=== PATIENT | female | born 1975 | race Caucasian/White ===

== ENCOUNTER → 2017-01-31 | Emergency (ER) | payer OTHER ==
[~2017-01-31] VITALS: Wt 70.0 kg
[~2017-01-31] MED LIST: ACET500C5 PO; ACETAMINOPHEN 325 MG TAB PO STA; MULT1TAB59; SOD CHLORIDE 0.9% 1,000 ML IV STA
[2017-01-31 16:47] LABS: ADD SCAN DIFF NO
[2017-01-31 16:58] LABS: ADD UMIC YES; URINE BILIRUBIN (Dip) NEGATIVE (NEGATIVE); URINE BLOOD (Dip) TRACE (NEGATIVE); URINE COLOR LT. YELLOW (YELLOW); URINE GLUCOSE (Dip) NEGATIVE (NEGATIVE); URINE KETONES (Dip) NEGATIVE (NEGATIVE); URINE LEUKOCYTE ESTERASE (Dip) NEGATIVE (NEGATIVE); URINE NITRITE (Dip) NEGATIVE (NEGATIVE); URINE TOTAL PROTEIN (Dip) NEGATIVE (NEGATIVE); URINE UROBILINOGEN (Dip) 0.2 E.U./dL (0.1-1.0)
[2017-01-31 16:59] LABS: BASOPHILS % 0.3 % (0.0-2.0); EOSINOPHILS % 0.3 % (0.0-7.0); LYMPHOCYTES # 1.3 10^3/ul (0.8-2.9); MEAN CORPUSCULAR HEMOGLOBIN 27.7 pg (29.0-33.0); MEAN CORPUSCULAR HGB CONC 32.4 g/dl (32.0-37.0); MEAN CORPUSCULAR VOLUME 85.5 fl (82.0-101.0); MEAN PLATELET VOLUME 11.5 fl (7.4-10.4); MONOCYTE # 0.6 10^3/ul (0.3-0.9); MONOCYTES % 8.4 % (0.0-11.0); NEUTROPHIL # 5.2 10^3/ul (1.6-7.5); NEUTROPHILS % 72.6 % (39.0-77.0); PLATELET COUNT 229 10^3/UL (140-415); RED BLOOD COUNT 4.33 10^6/ul (4.20-5.40); RED CELL DISTRIBUTION WIDTH 14.6 % (11.5-14.5); WHITE BLOOD COUNT 7.1 10^3/ul (4.8-10.8)
[2017-01-31 17:07] LABS: BACTERIA,URINE FEW; URINE RBCS 0-2 /HPF (0)
--- NOTE | 2017-01-31 17:11 | RADRPT ---
PROCEDURE: OB Ultrasound. CLINICAL INDICATION: Positive test. Pelvic pain. TECHNIQUE: Ultrasound of the pelvis was performed with transabdominal and transvaginal sonography in the axial and sagittal planes. COMPARISON: No prior study is available for comparison. FINDINGS: There is a single intrauterine gestational sac. pole is not visualized. Yolk sac is present. Mean sac diameter is 0.68 cm. There is a region of subchorionic hemorrhage measuring 4.2 x 0.5 x 2.2 cm. Menstrual age by ultrasound dates is 5 weeks 3 days. This indicates an expected date of delivery of 09/30/2017. The right ovary appears normal measuring 2.5 x 1.4 x 1.9 cm. The left ovary appears normal measuring 2.6 x 1.9 x 2.4 cm. Color Doppler and pulsed Doppler sonography demonstrate normal flow to the ovaries. There is no other pelvic mass or free fluid. IMPRESSION: 1. Single intrauterine gestational sac with yolk sac present. pole is not visualized. Follo w-up ultrasound in 11 days is advised. 2. Subchorionic hemorrhage. 3. Otherwise unremarkable study. RPTAT: QQ .Miguel Ernst MD, Date Time Electronically viewed and signed by .Miguel Ernst MD, on 01/31/2017 17:11 .R/
[2017-01-31 18:33] VITALS: BP 105/51; PULSE 82; RESP 18; TEMP 97.6
--- NOTE | 2017-01-31 18:34 | ERD ---
ER Documentation Chief Complaint Date/Time DATE: 01/31/17 TIME: 18:21 Chief Complaint 6 WKS PREG NO VAG BLEED. MILD CRAMP, HEADACHE SINCE LAST NIGHT. BP OK HPI Patient is a 41-year-old female who is with a last normal menstrual period of 12/25/16 who presents to the ED with headache, dizziness and one episode of high blood pressure of 140/98. She states that yesterday she checked her blood pressure and it was 140/98 and she had dizziness. She denies blurry vision or weakness. She states that her headache is better today however she still does have some mild tenderness in her bitemporal area. Denies blurry vision, runny nose, photophobia or phonophobia. She also states that when she moves her head, the room is spinning. Denies chest pain, cough, shortness of breath or difficulty breathing. Denies leg pain or swelling, recent travel or recent surgeries. She also complains of a left pelvic pressure. Denies abdominal pain, nausea, vomiting, diarrhea or constipation. Denies vaginal bleeding. Denies fever or chills. She is not taking any medication for her symptoms. No other complaints. Her OB doctor is Dr. Meyer. ROS All systems reviewed and are negative except as per history of present illness. Medications Home Meds Active Scripts Acetaminophen* (Tylophen*) 500 Mg Capsule, 1 CAP PO Q6H Y for PAIN AND OR ELEVATED TEMP, #20 CAP Prov:MARK RUCKER PA-C 01/31/17 Reported Medications Multivitamins* (Multivitamins*) 1 Tab Tablet 05/17/12 Allergies Allergies: Coded Allergies: hydrocodone bit (Verified Allergy, Unknown, VOMITTING DIZZINESS, NAUSEA, ) PMhx/Soc Anesthesia Reaction: Yes ([id number]) Hx Neurological Disorder: No Hx Respiratory Disorders: No Hx Cardiac Disorders: No Hx Psychiatric Problems: No Hx Miscellaneous Medical Probl: Yes (gestational diabetes past) Hx Alcohol Use: No Hx Substance Use: No Hx Tobacco Use: No Smoking Status: Never smoker FmHx Family History: No coronary disease, No diabetes, No other Physical Exam Vitals Vital Signs Date Time Temp Pulse Resp B/P Pulse Ox O2 Delivery O2 Flow Rate FiO2 01/31/17 14:24 98.5 100 21 119/64 99 Physical Exam GENERAL: Well-developed, well-nourished female. Appears in no acute distress. HEAD: Normocephalic, atraumatic. EYES: Pupils are equally reactive bilaterally. EOMs grossly intact. No conjunctival erythema. ENT: Moist mucous membranes. No uvula deviation. No kissing tonsils. No exudates. No nystagmus NECK: Supple. No lymphadenopathy or thyromegaly. No meningismus. negative kernig. negative brudinski. LUNG: Clear to auscultation bilaterally. No rhonchi, wheezing, rales or coarse breath sounds. HEART: Regular rate and rhythm. No murmurs, rubs or gallops. ABDOMEN: No scars, ecchymosis or rashes noted. Soft, nontender, and nondistended. Positive bowel sounds in all four quadrants. No rebound tenderness , no guarding. (-) McBurneys point tenderness. No CVA tenderness. BACK: No midline tenderness. Extremities: Equal pulses bilaterally. No peripheral clubbing, cyanosis or edema. No unilateral leg swelling. NEUROLOGIC: Alert and oriented. Moving all four extremities. 5/5 strength in all extremities. Normal speech. Steady gait. Cranial nerves II through XII intact SKIN: Normal color. Warm and dry. No rashes or lesions. Capillary refill < 2 seconds Result Diagram: 01/31/17 1621 Results 24 hrs Laboratory Tests Test 01/31/17 16:21 01/31/17 16:30 Basophils # 0.010^3/ul Basophils % 0.3% Beta HCG, Quantitative 8715.3mIU/ml Eosinophils # 0.010^3/ul Eosinophils % 0.3% Hematocrit 37.0% Hemoglobin 12.0g/dl Lymphocytes # 1.310^3/ul Lymphocytes % 18.0% Mean Corpuscular Hemoglobin 27.7pg Mean Corpuscular Hemoglobin Concent 32.4g/dl Mean Corpuscular Volume 85.5fl Mean Platelet Volume 11.5fl Monocytes # 0.610^3/ul Monocytes % 8.4% Neutrophils # 5.210^3/ul Neutrophils % 72.6% Nucleated Red Blood Cells # 0.010^3/ul Nucleated Red Blood Cells % 0.0/100WBC Platelet Count 57459^3/UL Red Blood Count 4.3310^6/ul Red Cell Distribution Width 14.6% White Blood Count 7.110^3/ul Urine Bacteria FEW Urine Bilirubin NEGATIVE Urine Clarity CLEAR Urine Color LT. YELLOW Urine Epithelial Cells FEW Urine Glucose NEGATIVE% Urine Hemoglobin TRACE Urine Ketones NEGATIVE Urine Leukocyte Esterase NEGATIVE Urine Microscopic RBC 0-2/HPF Urine Microscopic WBC 0-2/HPF Urine Nitrite NEGATIVE Urine Specific [place] 1.015 Urine Total Protein NEGATIVE Urine Urobilinogen 0.2 E.U./dL Urine pH 6.0 Current Medications Medications (Trade) Dose Ordered Sig/Edis Route PRN Reason Start Time Stop Time Status Last Admin Dose Admin Sodium Chloride (NS) 1,000 ml @ 1,000 mls/hr Q1H STAT IV 01/31/17 16:10 01/31/17 17:09 DC 01/31/17 16:22 Acetaminophen (Tylenol Tab) 650 mg ONCE STAT PO 01/31/17 16:10 01/31/17 16:12 DC 01/31/17 16:20 Procedures/MDM ER COURSE: I kept the patient and/or family informed of laboratory and diagnostic imaging results throughout the emergency room course. EKG, MONITORS, & DIAGNOSTIC IMAGING: EKG performed, read by Dr. Luna 86 bpm, normal sinus rhythm, normal axis, no acute ST segment changes, no T wave inversion [place] [id number] Radiology Main Line: [phone] DIAGNOSTIC IMAGING REPORT Patient: FRANCISCO ARORA : 1975 Age: 41 Sex: F MR #: [id number] DOS: 01/31/17 1610 Ordering MD: MARK RUCKER PA-C Location: [facility] Room/Bed: PROCEDURE: OB Ultrasound. CLINICAL INDICATION: Positive test. Pelvic pain. TECHNIQUE: Ultrasound of the pelvis was performed with transabdominal and transvaginal sonography in the axial and sagittal planes. COMPARISON: No prior study is available for comparison. FINDINGS: There is a single intrauterine gestational sac. pole is not visualized. Yolk sac is present. Mean sac diameter is 0.68 cm. There is a region of subchorionic hemorrhage measuring 4.2 x 0.5 x 2.2 cm. Menstrual age by ultrasound dates is 5 weeks 3 days. This indicates an expected date of delivery of 09/30/2017. The right ovary appears normal measuring 2.5 x 1.4 x 1.9 cm. The left ovary appears normal measuring 2.6 x 1.9 x 2.4 cm. Color Doppler and pulsed Doppler sonography demonstrate normal flow to the ovaries. There is no other pelvic mass or free fluid. IMPRESSION: 1. Single intrauterine gestational sac with yolk sac present. pole is not visualized. Follow-up ultrasound in 11 days is advised. 2. Subchorionic hemorrhage. 3. Otherwise unremarkable study. RPTAT: QQ .Miguel Ernst MD, MD Date Time Electronically viewed and signed by .Miguel Ernst MD, on 01/31/2017 17:11 .R/ CC: MARK RUCKER PA-Barbra PROCEDURES: IV fluids, normal saline, Tylenol. Tolerated well and stated improvement in symptoms. No adverse reaction. LAB INTERPRETATION: CBC showed no evidence of systemic infection or severe anemia. Lipase showed no evidence of acute pancreatitis. UA showed no evidence of leukocytes, nitrites or hematuria. U RH: A+ C MEDICAL DECISION MAKING: This is a 41-year-old female who presents with dizziness, headache 1 day. Vital signs were reviewed. Patient is afebrile. Patient is not hypoxic. Patient does not have allergy to tylenol. Tylenol was given to patient and stated improvement in symptoms after fluids were also given. She states that her headache and dizziness were resolved. She did not have nausea, vomiting or abdominal pain. has headache of uncertain etiology. Her ultrasound as read by radiologist shows . Single intrauterine gestational sac with yolk sac present. pole is not visualized. Follow-up ultrasound in 11 days is advised. Subchorionic hemorrhage. Otherwise unremarkable study. Low suspicion for ovarian torsion, PID, tuboovarian abscess, ectopic , bowel obstruction , pyelonephritis, UTI, appendicitis, cervicitis, septic , molar , HELLP syndrome, preeclampsia, eclampsia, placenta previa, placenta abruptia. Her blood pressure is within normal limits, 119/64 and I have low suspicion for hypertensive urgency, emergency or endorgan damage. Her pulse of 100 has decreased to 86. I do not think any further imaging studies are warranted at this time as her neuro exam is within normal limits and she seen improvement after fluids and Tylenol. Low suspicion for intracranial hemorrhage, meningitis , intracranial mass, concussion, temporal arteritis, stroke, elevated intracranial pressure, seizure. DISCHARGE: At this time, patient is stable for discharge and outpatient management with no new complaints during the ER course. Patient was sent home with Tylenol and copy of her labs and imaging studies and to follow-up with Dr. Meyer. Patient will be discharged home with instructions to recheck for new or worsening symptoms such as fever, nausea, weakness, LOC and to follow up with primary care in the next 1-2 days. Patient was advised to return to the ER for any new or worsening symptoms. Plan was discussed and patient and/or family understands and agrees. Home instructions were given. Departure Diagnosis: Primary Impression: Headache Headache type: unspecified Headache chronicity pattern: unspecified pattern Intractability: not intractable Qualified Code: R51 - Nonintractable headache, unspecified chronicity pattern, unspecified headache type Condition: Stable Patient Instructions: Self-Care for Headaches Referrals: DOCTOR,NOT ON STAFF Additional Instructions: Call your primary care doctor TOMORROW for an appointment during the next 1-2 days.See the doctor sooner or return here if your condition worsens before your appointment time. MARK RUCKER PA-C Jan 31, 2017 18:33
== END | disposition home or self-care (01) ==
LOC: FTE 13:54
DX: O99.89 Other specified diseases and conditions complicating pregnancy, childbirth and the puerperium (principal); R51 Headache; R42 Dizziness and giddiness; R10.2 Pelvic and perineal pain; Z3A.01 Less than 8 weeks gestation of pregnancy
CPT/HCPCS: 36415; 76801; 76817; 81001; 84702; 85025; 86900; 86901; 93005; J7030; Z7502; Z7610; 81003

== ENCOUNTER 2017-02-24 19:54 | Emergency (ER) | payer OTHER ==
[~2017-02-24] VITALS: Ht 157.5 cm; Wt 70.0 kg
[~2017-02-24 19:54] MED LIST changes: -ACETAMINOPHEN 325 MG TAB PO STA; -SOD CHLORIDE 0.9% 1,000 ML IV STA
[2017-02-24 20:28] VITALS: Ht 157.5 cm; Wt 70.0 kg
[2017-02-24 21:27] LABS: ADD UMIC YES; URINE BILIRUBIN (Dip) NEGATIVE (NEGATIVE); URINE BLOOD (Dip) NEGATIVE (NEGATIVE); URINE COLOR LT. YELLOW (YELLOW); URINE GLUCOSE (Dip) NEGATIVE (NEGATIVE); URINE KETONES (Dip) NEGATIVE (NEGATIVE); URINE LEUKOCYTE ESTERASE (Dip) TRACE (NEGATIVE); URINE NITRITE (Dip) NEGATIVE (NEGATIVE); URINE TOTAL PROTEIN (Dip) NEGATIVE (NEGATIVE); URINE UROBILINOGEN (Dip) 0.2 E.U./dL (0.1-1.0)
[2017-02-24 21:38] LABS: BACTERIA,URINE FEW; SQUAMOUS EPITHELIAL CELL,UR RARE; URINE RBCS NONE SEEN /HPF (0)
[2017-02-24 21:39] LABS: ADD SCAN DIFF NO
[2017-02-24 21:45] LABS: ABNORMAL IP MESSAGE 1; HEMATOCRIT 36.7 % (37.0-47.0); HEMOGLOBIN 12.3 g/dl (12.0-16.0); MEAN CORPUSCULAR HGB CONC 33.5 g/dl (32.0-37.0); MEAN CORPUSCULAR VOLUME 86.6 fl (82.0-101.0); MEAN PLATELET VOLUME 11.5 fl (7.4-10.4); PLATELET COUNT 265 10^3/UL (140-415); RED BLOOD COUNT 4.24 10^6/ul (4.20-5.40); WHITE BLOOD COUNT 11.2 10^3/ul (4.8-10.8)
--- NOTE | 2017-02-24 21:53 | RADRPT ---
PROCEDURE: US OB. CLINICAL INDICATION: Vaginal bleeding in a female. TECHNIQUE: Transabdominal and transvaginal views of the pelvis are available for review. COMPARISON: Of the sonogram 01/31/2017. FINDINGS: The uterus is identified and contains a gestational sac containing a single fetus. The gestational sac measured 2.5 x 1.7 x 4.5 cm. This calculates out to a mean sac diameter of 9.2 cm. This calculates out to a weeks 0 days. Smolan-rump length:1.6 cm calculates out to 8 weeks 0 days. heart rate:No detectable heart rate. A 0.7 cm subchorionic hemorrhage is identified. A yolk sac is noted. No ovarian or adnexal mass lesion is seen. There is no free fluid. IMPRESSION: 1. demise. 2. Smolan-rump length: 1.6 cm calculates out to 8 weeks 0 days. 3. 0.7 cm subchorionic hemorrhage. 4. No free fluid in the pelvis and no abnormal adnexal mass is identified. RPTAT:AAJJ Physician Mala Date Time Electronically viewed and signed by Physician Mala on 02/24/2017 21:53 STEFANO/
[2017-02-24 22:43] LABS: EOSINOPHILS # 0.2 10^3/ul (0.0-0.5); LYMPHOCYTES # 3.7 10^3/ul (0.8-2.9); MONOCYTE # 0.9 10^3/ul (0.3-0.9); NEUTROPHIL # 5.3 10^3/ul (1.6-7.5)
--- NOTE | 2017-02-25 01:16 | ERD ---
ER Documentation Chief Complaint Date/Time DATE: 02/25/17 TIME: 01:14 Chief Complaint Pelvic pain. Seen OB today no Heart tone on US HPI This is a 41-year-old female that presents to the ER with pelvic pain and vaginal spotting that started today. Patient went to her [employer]B [employer]PERATOR [facility] and was told that there was no heart tones heard on the ultrasound. Patient wanted to come to the ER to confirm. A0. Patient denies any urinary frequency or dysuria. She denies any vaginal discharge. ROS 12 point review of systems was done, all negative except per HPI. Medications Home Meds Active Scripts Acetaminophen* (Tylophen*) 500 Mg Capsule, 1 CAP PO Q6H Y for PAIN AND OR ELEVATED TEMP, #20 CAP Prov:MARK RUCKER PA-C 01/31/17 Reported Medications Multivitamins* (Multivitamins*) 1 Tab Tablet 05/17/12 Allergies Allergies: Coded Allergies: hydrocodone bit (Verified Allergy, Unknown, VOMITTING DIZZINESS, NAUSEA, ) PMhx/Soc Anesthesia Reaction: Yes ([id number]) Hx Neurological Disorder: No Hx Respiratory Disorders: No Hx Cardiac Disorders: No Hx Psychiatric Problems: No Hx Miscellaneous Medical Probl: Yes (gestational diabetes past) Hx Alcohol Use: No Hx Substance Use: No Hx Tobacco Use: No Smoking Status: Never smoker Physical Exam Vitals Vital Signs Date Time Temp Pulse Resp B/P Pulse Ox O2 Delivery O2 Flow Rate FiO2 02/24/17 20:28 98.5 75 20 118/63 100 Physical Exam GENERAL: The patient is well developed and appropriate for usual state of health , in no apparent distress. HEENT: Atraumatic. CHEST: Clear to auscultation bilaterally. There are no rales, wheezes or rhonchi. HEART: Regular rate and rhythm. No murmurs, clicks, rubs or gallops. ABDOMEN: Soft, nontender and nondistended. Good bowel sounds. No rebound or guarding. No gross peritonitis. No gross organomegaly or masses. No Rubi sign or McBurney point tenderness. BACK: No midline or flank tenderness. NEURO: Alert and oriented. Result Diagram: 02/24/170 Results 24 hrs Laboratory Tests Test 02/24/17 21:00 02/24/17 21:30 Urine Color LT. YELLOW Urine Clarity CLEAR Urine pH 7.0 Urine Specific [place] 1.015 Urine Ketones NEGATIVE Urine Nitrite NEGATIVE Urine Bilirubin NEGATIVE Urine Urobilinogen 0.2 E.U./dL Urine Leukocyte Esterase TRACE Urine Microscopic RBC NONE SEEN/HPF Urine Microscopic WBC 0-2/HPF Urine Squamous Epithelial Cells RARE Urine Bacteria FEW Urine Hemoglobin NEGATIVE Urine Glucose NEGATIVE% Urine Total Protein NEGATIVE White Blood Count 11.210^3/ul Red Blood Count 4.2410^6/ul Hemoglobin 12.3g/dl Hematocrit 36.7% Mean Corpuscular Volume 86.6fl Mean Corpuscular Hemoglobin 29.0pg Mean Corpuscular Hemoglobin Concent 33.5g/dl Red Cell Distribution Width 15.0% Platelet Count 26173^3/UL Mean Platelet Volume 11.5fl Neutrophils % 47.0% Lymphocytes % 33.0% Reactive Lymphocytes % 10.0% Monocytes % 8.0% Eosinophils % 2.0% Neutrophils # 5.310^3/ul Lymphocytes # 3.710^3/ul Monocytes # 0.910^3/ul Eosinophils # 0.210^3/ul Beta HCG, Quantitative 397809.0mIU/ml Procedures/MDM Differential diagnosis: Threatened , missed , incomplete , ectopic , molar , UTI, pyelonephritis. At this time patient unfortunately has had a demise. Patient is hemodynamically stable and she is not eating a lot, only spotting. I discussed with patient the possibility of possibly getting a D&C on outpatient basis. Suspicion for ectopic or molar is low. 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 My medical decision making was shared with the patient she understands and agrees with plan. Departure Diagnosis: Primary Impression: demise Condition: Stable Patient Instructions: Understanding Miscarriage: Recovery Additional Instructions: Call your primary care doctor TOMORROW for an appointment during the next 1-2 days.See the doctor sooner or return here if your condition worsens before your appointment time. MONO BEARDEN Feb 25, 2017 01:16
== END 2017-02-24 23:19 | disposition home or self-care (01) ==
LOC: FTE 19:54
DX: O02.1 Missed abortion (principal)
CPT/HCPCS: 36415; 76801; 76817; 81001; 81003; 84702; 85025; 86900; 86901

== ENCOUNTER → 2017-02-28 | Day surgery (SDC) | payer OTHER ==
[~2017-02-28] VITALS: Ht 157.5 cm; Wt 69.0 kg
[2017-02-28] VITALS (14 sets, daily range): BP systolic 116–145; BP diastolic 57–74; PULSE 74–116; RESP 11–22; Ht 157.5 cm; Wt 69.0 kg
[~2017-02-28] MED LIST changes: +CEFAZOLIN 1 GM INJ ONE; +DIPHENHYDRAMINE 50 MG INJ IV PRN; +FENTAnyl 50 MCG/ML VIAL IV PRN; +FENTAnyl 50 MCG/ML VIAL ONE; +LIDOCAINE 2% (SDV) 5 ML INJ ONE; +MIDAZOLAM 1 MG/ML 2 ML INJ ONE; +ONDANSETRON 4 MG INJ IV PRN; +ONDANSETRON 4 MG INJ ONE; +OXYTOCIN 10 UNIT INJ ONE; +PROPOFOL 20 ML ONE; +STRONG IODINE 14 ML SOLUTION TOP ONE
[2017-02-28 14:53] LABS: ADD SCAN DIFF NO
[2017-02-28 14:55] LABS: BASOPHILS % 0.2 % (0.0-2.0); EOSINOPHILS # 0.1 10^3/ul (0.0-0.5); EOSINOPHILS % 0.6 % (0.0-7.0); HEMATOCRIT 34.6 % (37.0-47.0); HEMOGLOBIN 11.4 g/dl (12.0-16.0); LYMPHOCYTES % 28.1 % (15.0-51.0); MEAN CORPUSCULAR HEMOGLOBIN 28.1 pg (29.0-33.0); MEAN CORPUSCULAR HGB CONC 32.9 g/dl (32.0-37.0); MEAN CORPUSCULAR VOLUME 85.4 fl (82.0-101.0); MEAN PLATELET VOLUME 11.3 fl (7.4-10.4); MONOCYTE # 0.6 10^3/ul (0.3-0.9); MONOCYTES % 5.6 % (0.0-11.0); NEUTROPHILS % 65.2 % (39.0-77.0); PLATELET COUNT 233 10^3/UL (140-415); RED BLOOD COUNT 4.05 10^6/ul (4.20-5.40); RED CELL DISTRIBUTION WIDTH 15.1 % (11.5-14.5); WHITE BLOOD COUNT 10.8 10^3/ul (4.8-10.8)
[2017-02-28 15:03] LABS: INR 1.02; PROTIME 13.4 Sec (12.2-14.2)
[2017-02-28 15:04] LABS: PARTIAL THROMBOPLASTIN TIME 27.3 Sec (25.0-35.0)
[2017-02-28 15:08] LABS: POTASSIUM 3.6 mmol/L (3.5-5.1)
--- NOTE | 2017-02-28 15:18 | RADRPT ---
PROCEDURE: XR Chest. CLINICAL INDICATION: Preoperative. TECHNIQUE: Single frontal view. COMPARISON: None. FINDINGS: The lungs are clear. The heart size is normal. There is no pleural effusion. There is no pneumothorax. IMPRESSION: 1. Normal chest radiograph. RPTAT: QQ .Miguel Ernst MD, Date Time Electronically viewed and signed by .Miguel Ernst MD, on 02/28/2017 15:18 .R/
[2017-02-28 15:22] LABS: CALCIUM 8.9 mg/dl (8.4-10.2); CREATININE 0.52 mg/dl (0.44-1.00)
[2017-02-28 15:24] LABS: ADD UMIC YES; URINE BILIRUBIN (Dip) NEGATIVE (NEGATIVE); URINE BLOOD (Dip) TRACE (NEGATIVE); URINE COLOR LT. YELLOW (YELLOW); URINE GLUCOSE (Dip) NEGATIVE (NEGATIVE); URINE KETONES (Dip) TRACE (NEGATIVE); URINE LEUKOCYTE ESTERASE (Dip) TRACE (NEGATIVE); URINE NITRITE (Dip) NEGATIVE (NEGATIVE); URINE TOTAL PROTEIN (Dip) NEGATIVE (NEGATIVE); URINE UROBILINOGEN (Dip) 0.2 E.U./dL (0.1-1.0)
[2017-02-28 15:56] LABS: BACTERIA,URINE FEW
--- NOTE | 2017-02-28 17:13 | HPN ---
Date/Time of Note Date/Time of Note DATE: 02/28/17 TIME: 17:12 Interval H&P Admission Note Pt. seen H&P reviewed: No system changes HEIDI VELAZQUEZ MD Feb 28, 2017 17:13
--- NOTE | 2017-02-28 17:53 | PD.PPDC ---
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
--- NOTE | 2017-02-28 20:56 | OPR ---
DATE OF OPERATION: 02/28/2017 PREOPERATIVE DIAGNOSIS: Missed . POSTOPERATIVE DIAGNOSIS: Missed . See pathological report. OPERATION PERFORMED: Suction curettage. ANESTHESIA: General. ANESTHESIOLOGIST: Dr. Dudley. SPECIMEN: Products of conception, which was sent for the tissue culture for chromosome analysis in the normal saline bottle. ESTIMATED BLOOD LOSS: Less than 50 mL. PROCEDURE: Under appropriate induction of general anesthesia, the patient was placed in dorsal lith otomy position. Perineal area and vagina wall was prepped and draped in usual aseptic manner. Bima nual examination revealed the uterus felt to be approximately 9 weeks of gestational size, soft in c onsistency, is anteverted and anteflexed. Weighted speculum introduced and anterior lip of the cerv ix was grasped with a single tooth tenaculum. Cervix was parous appearing, clear and the cavity was sounded, which was 9.5 cm. Os dilated gradually up to 10 size of a Hegar dilator and the size 8 mccall ction curette was inserted into the uterine cavity. Entire uterine cavity was suctioned in all dire ctions followed by the sharp curettage which confirmed the cavity is empty and then resuctioned and 10 units of Pitocin given through the IV infusion. At the beginning of the procedure of the suction , a piece of product of conception tissue which was sent for the chromosome analysis by tissue cultu re. Then, the procedure was proceeded after the separate specimen was obtained for the tissue cultu re. All the instruments were removed from the operative field and there is no significant bleeding noted. Bimanual examination done. Uterus was firm in consistency and there is no bleeding noted. Procedure completed. The patient sent to recovery room in stable condition. Dictated By: OWEN BOWLES/BOYD Conf#: [id number] DID#: [id number]
--- NOTE | 2017-03-04 15:15 | RADRPT ---
Vent Rate: 73 bpm RR Interval: 0 msec SD Interval: 148 msec QRS Duration: 84 msec QT Interval: 402 msec QTC Interval: 442 msec P-R-T [place]: 30 - -40 - 39 degrees Normal sinus rhythm Left axis deviation Pulmonary disease pattern Abnormal ECG Electronically Signed By: Jose Guy [id number]
== END | disposition home or self-care (01) ==
LOC: SDS 13:53
PROVIDERS: ATTEND Obstetrics & Gynecology
DX: O02.1 Missed abortion (principal)
CPT/HCPCS: 59820; 71010; 80048; 81001; 81003; 85025; 85610; 85730; 88305; 93005; J0690; J2250; J2405; J2590; J3010; Z7512; Z7610

== ENCOUNTER 2018-06-04 11:38 | Emergency (ER) | END 2018-06-04 14:38 | disposition home or self-care (01) ==

== ENCOUNTER 2018-10-22 03:24 | Emergency (ER) | END 2018-10-22 07:57 | disposition home or self-care (01) ==

== ENCOUNTER 2018-12-06 17:09 | Inpatient (IN) | payer OTHER ==
[~2018-12-06] VITALS: Ht 157.5 cm; Wt 71.7 kg
[~2018-12-06 17:09] MED LIST changes: -CEFAZOLIN 1 GM INJ ONE; -DIPHENHYDRAMINE 50 MG INJ IV PRN; -FENTAnyl 50 MCG/ML VIAL IV PRN; -FENTAnyl 50 MCG/ML VIAL ONE; -LIDOCAINE 2% (SDV) 5 ML INJ ONE; -MIDAZOLAM 1 MG/ML 2 ML INJ ONE; -ONDANSETRON 4 MG INJ IV PRN; -ONDANSETRON 4 MG INJ ONE; -OXYTOCIN 10 UNIT INJ ONE; +PREN-93 PO; -PROPOFOL 20 ML ONE; -STRONG IODINE 14 ML SOLUTION TOP ONE
[2018-12-06 17:56] VITALS: Ht 157.5 cm; Wt 71.7 kg
[2018-12-06] MEDS ORDERED: CARBOPROST 250 MCG INJ IM PRN (18:00)
[2018-12-06] MEDS ORDERED: IBUPROFEN 600 MG TAB PO PRN (18:00)
[2018-12-06] MEDS ORDERED: METHYLERGONOVINE 0.2 MG INJ IM PRN (18:00)
[2018-12-06] MEDS ORDERED: OXYTOCIN 30 UNITS/LR 500 ML IV SCH (18:00)
[2018-12-06] MEDS ORDERED: LIDOCAINE 1% (MPF) 30 ML INJ INJ PRN (18:00)
[2018-12-06] MEDS ORDERED: MISOPROSTOL 200 MCG TAB VAG ONE (18:00)
[2018-12-06] MEDS ORDERED: MISOPROSTOL 200 MCG TAB PR PRN (18:00)
[2018-12-06] MEDS ORDERED: OXYTOCIN 30 UNITS/LR 500 ML IV PRN (18:00)
[2018-12-06] MEDS: LACTATED RINGER'S 1,000 ML IV SCH ×2 (19:18→23:00)
[2018-12-06] MEDS ORDERED: DIPHENHYDRAMINE 50 MG INJ IV PRN (21:30)
[2018-12-06] MEDS ORDERED: NALOXONE (0.4 MG/ML) INJ IV PRN (21:30)
[2018-12-06] MEDS ORDERED: ONDANSETRON 4 MG INJ IV PRN (21:30)
--- NOTE | 2018-12-06 21:32 | PREAC ---
Date/Time of Note Date/Time of Note DATE: 12/06/18 TIME: 21:30 Anesthesia Eval and Record Evaluation Time Pre-Procedure Interview DATE: 12/06/18 TIME: 21:30 Age 43 Sex female NPO: 8 hrs Preoperative diagnosis IUP, Demise Planned procedure L&D Epidural Past Medical History Past Medical History: None Surgery & Anesthesia Issues No known issue Meds Anticoagulation: No Beta Ld within 24 hr: No Reason Beta Ld not given: Pt. not on B-Ld Active Scripts Vit No.124/Iron/FA ( Vitamin Tablet) 1 Each Tablet, 1 EACH PO DAILY, #30 TAB Prov:JENILABANCHAVA F 10/22/18 Acetaminophen* (Tylophen*) 500 Mg Capsule, 1 CAP PO Q6H PRN for PAIN AND OR ELEVATED TEMP, #20 CAP Prov:PASILABANNIKKIAR F 10/22/18 Acetaminophen* (Tylophen*) 500 Mg Capsule, 1 CAP PO Q6H PRN for PAIN AND OR ELEVATED TEMP, #20 CAP Prov:CAROLINA RON PA-C 06/04/18 Acetaminophen* (Tylophen*) 500 Mg Capsule, 1 CAP PO Q6H PRN for PAIN AND OR ELEVATED TEMP, #20 CAP Prov:MARK RUCKER PA-C 01/31/17 Reported Medications Multivitamins* (Multivitamins*) 1 Tab Tablet 05/17/12 Current Medications Lactated Ringer's 1,000 ml @ 125 mls/hr Q8H IV Last administered on 12/06/18at 19:18; Admin Dose 125 MLS/HR; Start 12/06/18 at 17:57 Lidocaine (Xylocaine 1% (Mpf)) 30 ml ONCE PRN INJ EPISIOTOMY; Start 12/06/18 at 18:00 Oxytocin/Lactated Ringer's 500 ml @ 500 mls/hr ONCE POST IV ; Start 12/06/18 at 18:00 Oxytocin/Lactated Ringer's 500 ml @ 125 mls/hr POST IV ; Start 12/06/18 at 18:00 Ibuprofen (Motrin) 600 mg ONCE PRN PO PAIN LEVEL 1-5; Start 12/06/18 at 18:00 Oxytocin/Lactated Ringer's 500 ml @ 0 mls/hr ONCE PRN IV VAGINAL BLEEDING; Sta rt 12/06/18 at 18:00 Methylergonovine Maleate (Methergine) 0.2 mg ONCE PRN IM VAGINAL BLEEDING; Start 12/06/18 at 18:00 Carboprost Tromethamine (Hemabate) 250 mcg ONCE PRN IM VAGINAL BLEEDING; Start 12/06/18 at 18:00 Misoprostol (Cytotec) 1,000 mcg ONCE PRN LA VAGINAL BLEEDING; Start 12/06/18 at 18:00 Meds reviewed: Yes Allergies Coded Allergies: hydrocodone bit (Verified Allergy, Unknown, VOMITTING DIZZINESS, NAUSEA, 06/04/18) Allergies Reviewed: Yes Labs/Studies Labs Reviewed: Reviewed by anesthesiologist Result Diagram: 12/06/181921 Laboratory Tests 12/06/18 19:22 Blood Bank Test 12/06/18 19:22 Antibody Screen NEGATIVE Blood Type A POSITIVE Rh Immune Globulin Candidate NO test: Positive Studies: ECG Pre-procedure Exam Last vitals BP:118/56, pulse:78, spo2:100%, T:98,8 Airway: Adequate mouth opening, Adequate thyromental dist Mallampati: Mallampati II Teeth: Normal Lung: Normal Heart: Normal ASA Physical Status ASA physical status: 2 Emergency: None Planned Anesthetic Neuraxial: Epidural Planned Pain Management Epidural, Parenteral pain med Pre-operative Attestations Prior to commencing anesthesia and surgery, the patient was re-evaluated, there was verification of: *The patient's identity *The results of appropriate recent lab work and preoperative vital signs *The above evaluation not changing prior to induction *Anesthetic plan, risk benefits, alternative and complications discussed with patient/family; questions answered; patient/family understands, accepts and wishes to proceed. ROBBIE ASH MD Dec 06, 2018 21:32
[2018-12-06] MEDS: MISOPROSTOL 100 MCG TAB VAG SCH (23:12)
[2018-12-07] MEDS: FENTAnyl 2MCG/ML-ROPIV 0.2% 100 ML BAG EPI SCH ×2 (00:54→05:36)
[2018-12-07] MEDS: MISOPROSTOL 100 MCG TAB VAG SCH ×2 (05:16→21:46)
[2018-12-07] MEDS: LACTATED RINGER'S 1,000 ML IV SCH ×2 (07:06→17:21)
[2018-12-07] MEDS: OXYTOCIN 30 UNITS/LR 500 ML IV SCH ×2 (09:12→11:38)
--- NOTE | 2018-12-07 10:40 | LDN ---
Date/Time of Note Date/Time of Note DATE: 12/07/18 TIME: 10:36 Delivery Summary vaginal delivery of fetus after x2 dose of [id number] Weeks of Gestation 19w3d Placenta Delivered: Spontaneously Episiotomy: No Perineal laceration: 0 Anesthesia type: Epidural Estimated blood loss: 200 Sponge & Needle done & correct: Yes All needle counts correct: Yes Any foreign bodies felt in the: No Delivery Information Sex Sex: female Apgars 1 Minute: 0 5 Minute: 0 Suctioning Nose & mouth suctioned at kya: No Delee suction performed: No Umbilical Cord Cord presentations: no nuchal cord Cord Blood was obtained: No Mother & Baby Disposition Disposition Mom & Baby to Maternity; Good: No Mom transferred to: Other Baby to NICU: No HEIDI VELAZQUEZ MD Dec 07, 2018 10:40
[2018-12-07] MEDS ORDERED: ACETAMINOPHEN 325 MG TAB PO ONE (11:00)
[2018-12-07 13:42] VITALS: BP 124/60; PULSE 88; RESP 20
[2018-12-07 14:30] VITALS: BP 127/77; PULSE 76; RESP 18
[2018-12-07 19:59] VITALS: BP 100/50; PULSE 82; RESP 16
[2018-12-08] MEDS: LACTATED RINGER'S 1,000 ML IV SCH ×3 (00:48→17:57)
[2018-12-08 01:41] VITALS: BP 97/52; PULSE 86; RESP 18
[2018-12-08] MEDS: MISOPROSTOL 100 MCG TAB VAG SCH ×3 (03:26→16:00)
[2018-12-08 07:42] VITALS: BP 109/56; PULSE 81; RESP 16
[2018-12-08 13:22] VITALS: BP 113/61; PULSE 99; RESP 18
[2018-12-08] MEDS ORDERED: NITROFURANTOIN (SR) 100 MG CAP PO SCH (15:30)
--- NOTE | 2018-12-08 16:55 | PAC ---
Date/Time of Note Date/Time of Note DATE: 12/08/18 TIME: 16:54 Post-Anesthesia Notes Post-Anesthesia Note Last documented vital signs Vital Signs Date Temp Pulse Resp B/P (MAP) Pulse Ox O2 O2 Flow FiO2 Time Delivery Rate 12/08/18 99.9 99 18 113/61 98 13:22 (78) 12/07/18 Room Air 14:30 Activity: WNL Respiratory function: WNL Cardiovascular function: WNL Mental status: Baseline Pain reasonably controlled: Yes Hydration appropriate: Yes Nausea/Vomiting absent: Yes Comments BP:110/65,pulse:88, spo2:100%, T:98,4 ROBBIE ASH MD Dec 08, 2018 16:55
[2018-12-08] MEDS ORDERED: PHENAZOPYRIDINE 200 MG TAB PO SCH (18:00)
--- NOTE | 2018-12-08 18:39 | PD.PPDC ---
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
--- NOTE | 2018-12-08 18:45 | DS ---
Date/Time of Note Date/Time of Note DATE: 12/08/18 TIME: 18:43 Obstetrical Discharge Record Final Diagnosis Final Diagnosis: delivered Other Final Diagnosis demise Vaginal Delivery Obstetrical Delivery: Spontaneous Complications Induction: Yes Rupture of Membranes: No Condition on Discharge Physical Assessment Last Vitals: vss afebrile Voiding: Yes Bowel Movement: Yes Fundus: Firm Abdomen and Incision: c/o dysuria and urinary frequency Episiotomy: n/a Calf Tenderness: No Patient Condition: Stable HEIDI VELAZQUEZ MD Dec 08, 2018 18:44
[2018-12-08 19:42] VITALS: BP 105/64; PULSE 90; RESP 18
--- NOTE | 2018-12-19 23:55 | HP ---
Date/Time of Note Date/Time of Note DATE: 12/19/18 TIME: 23:40 OB - History Hx of Present Free Text/Dictation 43y.o A1 here at triage at 19w3d by GA with diagnosis of demise which was confirmed with radiologist. she was admitted for IOL by using cytotec. Chief Complaint: demise for IOL : 6 Para: 4 Spontaneous : 1 Therapeutic : 0 Care: Good Care Ultrasounds: Abnormal US findings Abnormal Ultrasound Findings: demise Obstetrical Complications: None Medical Complications: None Past Family/Social History * PH Med unremarkable surgery x1 suction curettage for missed OB x4 FH mom HTN dad DM Blood Type: O+ Rubella: immune RPR/VDRL: Negative GBS Status: Unknown HBsAG: Negative OB Admission Exam Physical Exam HEENT: WNL Heart: Rhythm Normal Lungs: Clear, Equal Abdomen: WNL Extremities: Normal Reflexes: Normal Cervical Dilatation: None Effacement: 0% Station: -3 Membranes: Intact Amniotic Fluid: Unevaluable OB Assessment/Plan Other Assessment: demise 19w3d Plan: Induction Induction Method: per Misoprostol Protocol ( ) HEIDI VELAZQUEZ MD Dec 19, 2018 23:52
== END 2018-12-08 20:05 | disposition home or self-care (01) | DRG 779 ==
LOC: L-D 17:09 → 2NE 12-07 14:10
PROVIDERS: ADMIT Obstetrics & Gynecology; ATTEND Obstetrics & Gynecology
PROC: 10D17Z9 Manual Extraction of Products of Conception, Retained, Via Natural or Artificial Opening (ICD-10-PCS; principal; 2018-12-07)
DX: O02.1 Missed abortion (principal); R30.0 Dysuria; R35.0 Frequency of micturition
CPT/HCPCS: 62319; 81001; 85025; 85610; 85730; 86592; 86850; 86900; 86901; 87086; 88307; J2590; J3010; J7120

== ENCOUNTER 2018-12-29 05:48 | Day surgery (SDC) | payer OTHER ==
[~2018-12-29] VITALS: Ht 157.5 cm; Wt 70.4 kg
[2018-12-29] VITALS (14 sets, daily range): BP systolic 102–120; BP diastolic 55–66; PULSE 56–82; RESP 12–18; Ht 157.5 cm; Wt 70.4 kg
--- NOTE | 2018-12-29 07:39 | PREAC ---
Date/Time of Note Date/Time of Note DATE: 12/29/18 TIME: 07:37 Anesthesia Eval and Record Evaluation Time Pre-Procedure Interview DATE: 12/29/18 TIME: 07:37 Age 43 Sex female NPO: 8 hrs Preoperative diagnosis retained placenta Planned procedure d and c Past Medical History Past Medical History: Includes Musculoskeletal: Other (palindromic rheumatism) Surgery & Anesthesia Issues No known issue Meds Anticoagulation: No Beta Ld within 24 hr: No Reason Beta Ld not given: Pt. not on B-Ld Discontinued Reported Medications Multivitamins* (Multivitamins*) 1 Tab Tablet 05/17/12 Discontinued Scripts Vit No.124/Iron/FA ( Vitamin Tablet) 1 Each Tablet, 1 EACH PO DAILY, #30 TAB Prov:JENILANIKKI FISHAR F 10/22/18 Acetaminophen* (Tylophen*) 500 Mg Capsule, 1 CAP PO Q6H PRN for PAIN AND OR ELEVATED TEMP, #20 CAP Prov:JENILABAN,NIKKIAR F 10/22/18 Acetaminophen* (Tylophen*) 500 Mg Capsule, 1 CAP PO Q6H PRN for PAIN AND OR ELEVATED TEMP, #20 CAP Prov:CAROLINA RON PA-C 06/04/18 Acetaminophen* (Tylophen*) 500 Mg Capsule, 1 CAP PO Q6H PRN for PAIN AND OR ELEVATED TEMP, #20 CAP Prov:MARK RUCKER PA-C 01/31/17 Meds reviewed: Yes Allergies Coded Allergies: hydrocodone bit (Verified Allergy, Unknown, VOMITTING DIZZINESS, NAUSEA, 12/29/18) Allergies Reviewed: Yes Labs/Studies Labs Reviewed: Reviewed by anesthesiologist Result Diagram: 12/29/18 0700 Laboratory Tests 12/29/18 07:00 test: Negative Pre-procedure Exam Last vitals Vital Signs Date Temp Pulse Resp B/P (MAP) Pulse Ox O2 O2 Flow FiO2 Time Delivery Rate 12/29/18 98.3 82 18 116/61 97 Room Air 06:48 (79) Airway: Adequate mouth opening, Adequate thyromental dist Mallampati: Mallampati I Teeth: Normal Lung: Normal Heart: Normal ASA Physical Status ASA physical status: 2 Emergency: None Planned Anesthetic General/MAC: LMA Planned Pain Management Parenteral pain med Pre-operative Attestations Prior to commencing anesthesia and surgery, the patient was re-evaluated, there was verification of: *The patient's identity *The results of appropriate recent lab work and preoperative vital signs *The above evaluation not changing prior to induction *Anesthetic plan, risk benefits, alternative and complications discussed with patient/family; questions answered; patient/family understands, accepts and wishes to proceed. ENID CORMIER Dec 29, 2018 07:39
[2018-12-29] MEDS ORDERED: PROPOFOL 100 ML ONE (08:07)
[2018-12-29] MEDS ORDERED: FENTAnyl 50 MCG/ML VIAL ONE (08:08)
--- NOTE | 2018-12-29 08:37 | HPN ---
Date/Time of Note Date/Time of Note DATE: 12/29/18 TIME: 08:37 Interval H&P Admission Note Pt. seen H&P reviewed: No system changes HEIDI VELAZQUEZ MD Dec 29, 2018 08:37
[2018-12-29] MEDS ORDERED: DEXAMETHASONE 4 MG/ML 5 ML INJ ONE (09:03)
[2018-12-29] MEDS ORDERED: ONDANSETRON 4 MG INJ ONE (09:04)
--- NOTE | 2018-12-29 09:28 | PAC ---
Date/Time of Note Date/Time of Note DATE: 12/29/18 TIME: 09:27 Post-Anesthesia Notes Post-Anesthesia Note Last documented vital signs Vital Signs Date Temp Pulse Resp B/P (MAP) Pulse Ox O2 O2 Flow FiO2 Time Delivery Rate 12/29/18 98.3 82 18 116/61 97 Room Air 0926 (79) Activity: WNL Respiratory function: WNL Cardiovascular function: WNL Mental status: Baseline Pain reasonably controlled: Yes Hydration appropriate: Yes Nausea/Vomiting absent: Yes ENID CORMIER Dec 29, 2018 09:28
[2018-12-29] MEDS ORDERED: DIPHENHYDRAMINE 50 MG INJ IV PRN (09:30)
[2018-12-29] MEDS ORDERED: MIDAZOLAM 1 MG/ML 2 ML INJ IV PRN (09:30)
[2018-12-29] MEDS ORDERED: METOCLOPRAMIDE 10 MG INJ IV PRN (09:30)
[2018-12-29] MEDS ORDERED: ALBUTEROL 0.083% (NEB) 2.5 MG/3 ML AMP HHN PRN (09:30)
[2018-12-29] MEDS ORDERED: hydrALAzine 20 MG INJ IV PRN (09:30)
[2018-12-29] MEDS ORDERED: OXYCODONE/ACETAMINOPHEN (5/325) TAB PO PRN ×2 (09:30)
[2018-12-29] MEDS ORDERED: LABETALOL HCL 20MG INJ IV PRN (09:30)
[2018-12-29] MEDS ORDERED: EPHEDrine SULFATE 50 MG/5 ML SYG IV PRN (09:30)
[2018-12-29] MEDS ORDERED: ONDANSETRON 4 MG INJ IV PRN (09:30)
[2018-12-29] MEDS ORDERED: KETOROLAC 30 MG INJ IV PRN (09:30)
[2018-12-29] MEDS ORDERED: HYDROmorphONE 1 MG/5 ML IV SYRINGE IV PRN ×3 (09:30)
[2018-12-29] MEDS ORDERED: FENTAnyl 50 MCG/ML VIAL IV PRN ×3 (09:30)
[2018-12-29] MEDS ORDERED: MEPERIDINE 25 MG INJ IV PRN (09:30)
--- NOTE | 2018-12-29 09:36 | PD.PPDC ---
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
--- NOTE | 2018-12-29 09:44 | SIPON ---
Date/Time of Note Date/Time of Note DATE: 12/29/18 TIME: 09:38 Operative Report Preoperative Diagnosis s/p second trimester delivery for demise ,retained tissue Postoperative Diagnosis see path same as above Operation/Procedure Performed suction curettage Surgeon see signature line itinerant teacher assistant JONATHAN Francois Anesthesia: general Estimated blood loss: minimal Transfusion Required none Specimen POC Grafts/Implants none Complications none HEIDI VELAZQUEZ MD Dec 29, 2018 09:44
--- NOTE | 2018-12-29 10:28 | NUR ---
vss pain 0/10 pt resting comfortably no N/V updated report given to TYSON Schmidt
--- NOTE | 2018-12-29 11:01 | NUR ---
RE: DISCHARGE PATIENT DISCHARGED HOME. ALL DISCHARGE INSTRUCTIONS EXPLAINED AND PROVIDED TO PATIENT AND . IV REMOVED, NO BLEEDING FROM SURGICAL SITE, NO COMPLICATIONS. PATIENT VERBALIZED READINESS FOR DISCHARGE AND UNDERSTANDING OF INSTRUCTIONS PROVIDED STABLE TO LEAVE THE HOSPITAL.
--- NOTE | 2018-12-29 12:02 | OPR ---
DATE OF OPERATION: 12/29/2018 PREOPERATIVE DIAGNOSIS: Retained tissue status post second trimester vaginal delivery for shawna se. POSTOPERATIVE DIAGNOSIS: Retained tissue status post second trimester vaginal delivery for dem ise. See pathological report. OPERATION PERFORMED: Suction curettage. ANESTHESIA: General. ANESTHESIOLOGIST: Peter Castillo MD SPEECH PATHOLOGIST: [employer]. SURGEON: Norma Meyer MD ESTIMATED BLOOD LOSS: Minimal. SPONGE COUNT: Correct. PROCEDURE IN DETAILS: Under proper induction of general anesthesia, the patient was placed in the do rsal lithotomy position. Perineal area and vagina were prepped and draped in usual aseptic manner. Bimanual examination revealed uterus felt to be approximately 10 weeks of gestational size, soft. Th ere is no palpable adnexal pathology. On inspection, external genitalia revealed no gross abnormalit y. Weighted speculum introduced, cervix identified which appeared to be clear and anterior lip of th e cervix was grasped with a single tooth tenaculum. Cavity was sounded, which was 10 cm in depth and also was dilated gradually using Hegar dilator up to size 10 and size 8 straight suction curette was introduced and intrauterine cavity was suctioned in all directions with obtaining some retained tiss ue followed by sharp curettage and especially on the left fundal area, there was some tissue or fat w hich was curetted using a sharp curette followed by re-suctioning entire cavity in all directions. N o bleeding noted. Instruments were removed from the operative field. The patient withstood procedur e well and was sent to the recovery room in stable condition and was opened to see how much tis dragan was obtained. There was significant amount of product of conception and tissue noted. Dictated By: NORMA BOWLES/BOYD Conf#: [id number] DID#: [id number]
== END 2018-12-29 10:27 | disposition home or self-care (01) ==
LOC: SDS 05:48
PROVIDERS: ATTEND Obstetrics & Gynecology
DX: O03.4 Incomplete spontaneous abortion without complication (principal)
CPT/HCPCS: 59812; 71045; 80053; 85025; 85610; 85730; 93005; J1100; J2405; J3010; 88305